=== PATIENT | female | born 1980 | race Caucasian/White ===

== ENCOUNTER → 2018-02-04 | Emergency (ER) | payer OTHER ==
[~2018-02-04] VITALS: Ht 165.1 cm; Wt 136.1 kg
[~2018-02-04] MED LIST: AVALIDE 150/12.1 TAB; DOLOGESIC 500-1 EACH PO; MIRAPEX0.25 MG; SYNTHROID50 MCG; TOPROL XL50 M1
== END | disposition left against medical advice (07) ==
LOC: ER 18:30
DX: Z53.20 Procedure and treatment not carried out because of patient's decision for unspecified reasons (principal)

== ENCOUNTER 2018-09-09 17:57 | Emergency (ER) | payer OTHER ==
[~2018-09-09] VITALS: Ht 165.1 cm; Wt 136.1 kg
== END 2018-09-09 22:37 | disposition home or self-care (01) ==
LOC: ER 17:57
DX: J45.998 Other asthma (principal)

== ENCOUNTER 2019-03-21 19:17 | Emergency (ER) | payer OTHER ==
[~2019-03-21] VITALS: Ht 165.1 cm; Wt 143.8 kg
== END 2019-03-21 22:15 | disposition home or self-care (01) ==
LOC: ER 19:17
DX: S83.281A Other tear of lateral meniscus, current injury, right knee, initial encounter (principal); W18.39XA Other fall on same level, initial encounter; Y93.89 Activity, other specified; Y92.098 Other place in other non-institutional residence as the place of occurrence of the external cause; Y99.8 Other external cause status

== ENCOUNTER 2025-10-03 13:09 | Emergency (ER) | payer OTHER ==
[~2025-10-03] VITALS: Ht 165.1 cm; Wt 132.9 kg
[2025-10-03 14:48] VITALS: BP 145/92; O2SAT 98
[2025-10-03] MEDS ORDERED: KETOROLAC TROMETHAMINE 30 MG VIAL IM ONE (16:15)
[2025-10-03] MEDS ORDERED: KETOROLAC TROMETHAMINE 30 MG VIAL ONE (16:30)
== END 2025-10-03 21:25 | disposition home or self-care (01) ==
LOC: ER 13:09
DX: S93.492A Sprain of other ligament of left ankle, initial encounter (principal); X50.9XXA Other and unspecified overexertion or strenuous movements or postures, initial encounter; Y93.89 Activity, other specified; Y92.89 Other specified places as the place of occurrence of the external cause; Z88.0 Allergy status to penicillin; S93.402A Sprain of unspecified ligament of left ankle, initial encounter